=== PATIENT | female | born 1965 | race Two or more races ===

== ENCOUNTER → 2024-10-01 | Outpatient (CLI) | payer MEDICARE, MEDICAID, SELFPAY ==
--- NOTE | 2024-10-01 11:00 | XR_ITS ---
Examination: Retroperitoneal ultrasound, complete Technique: Multiple high resolution grayscale images of the retroperitoneum obtained, including kidneys and bladder. Exam date and time:October 01, 2024 1113 hours INDICATIONS: Right-sided flank pain beginning one month ago FINDINGS: Right kidney 9.8 x 4.2 x 4.5 cm cortex 1.4 cm Left kidney 9.8 x 5.0 x 4.8 cm cortex 1.6 cm Mild bilateral renal parenchymal scar formation No hydronephrosis No bladder mass or bladder calculi Bladder prevoid volume 118 cc postvoid volume 0 cc IMPRESSION: Mild bilateral renal parenchymal scar formation Bilateral renal cortical thinning No hydronephrosis
== END | disposition home or self-care (01) ==
PROVIDERS: PCP Physician Assistant Medical; Referring Provider Internal Medicine; Visit Provider Internal Medicine
DX: N28.89 Other specified disorders of kidney and ureter (principal)
CPT/HCPCS: 76770

== ENCOUNTER 2025-01-01 19:26 | Emergency (ER) | payer MEDICARE, MEDICAID, SELFPAY ==
[2025-01-01 20:11] VITALS: BP 157/61; PULSE 96; RESP 20; TEMP 36.7; O2SAT 97
--- NOTE | 2025-01-01 20:32 | XR_ITS ---
EXAMINATION: Ankle, right 3 views . Technique: Ankle AP, oblique, lateral 3 views Date and time of exam: January 01, 20252032 hrs. Indications: Patient fell today with injury to the ankle, ankle pain Findings: Small density at the lateral margin of the cuboid Medial lateral posterior malleolar regions intact Impression: Recommend follow-up foot films to exclude small fracture off the cuboid
[2025-01-01] MEDS: NAPROXEN 250 MG TABLET 500 MG PO (21:36)
--- NOTE | 2025-01-01 22:12 | XR_ITS ---
Examination: CT right foot, without contrast. 2-D sagittal reconstructions. 2-D coronal reconstructions. 3-D reconstructions. Date and time of exam:January 01, 2025 at 10:50 PM Indications: Patient fell today with injury to the CTDI: vol (mGy):5.51 DLP: (mGycm):100 Technique: Multiple 1.25 mm axial sections of the left leg have been obtained. 2-D sagittal and coronal reconstructions have been obtained. 3-D reconstructions have been obtained. Low dose protocols were performed. One or more of the following dose reduction techniques were used; automated exposure control, adjustment of the mA and/or KV according to patient size, use of iterative reconstruction technique. Findings: Moderate osteopenia Small old bone densities adjacent to the cuboid, sagittal image 39, but clinical correlation advised Metatarsals, metatarsals and digits appear intact No foreign bodies Impression : Old appearing fractures off accessory bone adjacent to the cuboid, but clinical correlation advised
[2025-01-01] MEDS: HYDROcodone/APAP 5/325 TABLET 1 TAB PO (23:24)
[2025-01-02] MEDS: HYDROcodone/APAP 5/325 TABLET 1 TAB PO (01:32)
[2025-01-02 01:39] VITALS: RESP 18
--- NOTE | 2025-01-02 01:42 | PD.EDANKLE ---
Lower Extremity Injury RME/HPI General Chief Complaint: Fall Stated Complaint: FELL, RIGHT KNEE/LEG INJURY Time Seen by Provider: 01/01/25 20:31 Arrival date/time: 01/01/25 19:26 59F with history of HTN presents to ED with R foot and knee pain (foot>knee), as well as some skin abrasions. Patient tripped and fell yesterday. Patient denies hitting her head and has had a tetanus shot in the past 5 years. Limitations: no limitations Related Data Home Medications ?Medication ?Instructions ?Recorded ?Confirmed amlodipine 10 mg tablet 10 mg PO QDAY 08/16/22 08/16/22 dexlansoprazole 60 mg See Rx Instructions .Route .COMPLEX 08/16/22 08/16/22 capsule,biphase delayed release empagliflozin 25 mg tablet 25 mg PO QDAY 08/16/22 08/16/22 (Jardiance) folic acid 1 mg tablet 1 mg PO QDAY 08/16/22 08/16/22 hydrochlorothiazide 25 mg tablet 25 mg PO QDAY 08/16/22 08/16/22 methotrexate sodium 2.5 mg tablet See Rx Instructions .Route .COMPLEX 08/16/22 08/16/22 pantoprazole 40 mg tablet,delayed 40 mg PO QDAY 08/16/22 08/16/22 release simvastatin 10 mg tablet 10 mg PO QDAY 08/16/22 08/16/22 Previous Rx's ?Medication ?Instructions ?Recorded clindamycin HCl 300 mg capsule 300 mg PO QID #40 caps 09/02/23 ketorolac 0.5 % eye drops 1 drp ophthalmic (eye) Q6H PRN 12/28/23 itching #5 mL ofloxacin 0.3 % eye drops See Rx Instructions ophthalmic 12/28/23 (eye) .COMPLEX #10 mL Allergies Allergy/AdvReac Type Severity Reaction Status Date / Time No Known Allergies Allergy Verified 01/01/25 19:30 Review of Systems Review of Systems Systems Reviewed: All systems reviewed, normal except as documented Constitutional Constitutional: Reports system reviewed and no additional complaints, except as documented, Denies fever(s) and Denies headache(s) ENT Ears, Nose, Mouth, and Throat: Denies disequilibrium and Denies headache(s) Cardiovascular Cardiovascular: Reports system reviewed and no additional complaints, except as documented, Denies chest pain and Denies dyspnea Respiratory Respiratory: Reports system reviewed and no additional complaints, except as documented, Denies cough and Denies dyspnea Gastrointestinal Gastrointestinal: Reports system reviewed and no additional complaints, except as documented, Denies abdominal pain, Denies nausea and Denies vomiting Musculoskeletal Musculoskeletal: Reports as per HPI and Reports arthralgias Neurologic Neurologic: Reports system reviewed and no additional complaints, except as documented, Denies confusion, Denies disequilibrium and Denies headache(s) Psychiatric Psychiatric: Denies confusion Past Medical History Past Medical History NEUROLOGIC: Negative Neurological Disorders or Seizures CARDIAC: Positive Hypercholesterolemia and Hypertension; Negative Cardiac Disorders or Congestive Heart Failure RESPIRATORY: Negative Chronic Obstructive Pulmonary Disease (COPD) or Asthma GASTROINTESTINAL: Positive Gastrointestinal Disorders (Abdominal pain, Hepatic cysts) GENITOURINARY: Negative Genitourinary Disorders or Renal Disease REPRODUCTIVE: Positive Previous Pregnancies MUSCULOSKELETAL: Positive Musculoskeletal Disorders and Carpal Tunnel Syndrome (Bilateral) ENDOCRINE: Positive Endocrine Disorders and Diabetes Mellitus Type 2; Negative Diabetes Mellitus Type 1 HEMATOLOGIC: Positive Anemia; Negative Blood Disorders or Sickle Cell Disease OTHER HISTORY: Positive Autoimmune Disease (Scleroderma); Negative Hospitalization, Falls, Blood Transfusions, Anesthesia Reactions or Cancer Social History SMOKING STATUS: Never smoker SUBSTANCE USE: does not use ED Exam General Limitations: Present no limitations General appearance: Present alert and in no apparent distress Head Head exam: Present atraumatic Eye Eye exam: Present normal appearance, PERRL and EOMI ENT ENT exam: Present normal exam, normal oropharynx and mucous membranes moist Neck Neck exam: Present normal inspection, full ROM and trachea midline Chest Chest inspection: Present normal inspection and symmetric chest wall rise Respiratory Respiratory exam: Present normal lung sounds bilaterally Cardiovascular Cardiovascular exam: Present regular rate, normal rhythm and normal heart sounds Abdominal Exam Abdominal exam: Present soft and normal bowel sounds Expanded Lower Extremity Exam Knee exam: Present full ROM and abrasion (R) Foot/toe exam: Present tenderness (R) and swelling Back Exam Back exam: Present normal inspection and full ROM Neurological Exam Neurological exam: Present alert, oriented X3 and CN II-XII intact Psychiatric Psychiatric exam: Present normal affect and normal mood Skin Skin exam: Present warm, dry, intact and normal color Course Quality Measures none Orders Category Date Time Status Crutches .NOW Care 01/01/25 20:32 Completed Splint / Immobilizer STAT Care 01/02/25 00:[address] foot RT wo con Stat Exams 01/01/25 22:12 Completed XR ankle comp RT min 3V Stat Exams 01/01/25 20:32 Completed HYDROcodone*/APAP 5/325 [[place] 5/325] Med 01/01/25 22:47 Discontinued 1 tab PO X1 ONE HYDROcodone*/APAP 5/325 [[place] 5/325] Med 01/02/25 01:22 Discontinued 1 tab PO X1 ONE Naproxen [Naprosyn] Med 01/01/25 20:32 Discontinued 500 mg PO X1 ONE Vital Signs Vital signs: Vital Signs Temperature 98.1 F 01/01/25 20:11 Pulse Rate 96 01/01/25 20:11 Respiratory Rate 20 01/01/25 20:11 Blood Pressure 157/61 H 01/01/25 20:11 Pulse Oximetry (%) 97 01/01/25 20:11 Oxygen Delivery Method Room Air 01/01/25 20:11 O2 at 97% on RA and WNLs Extremity Injury, Lower MDM Narrative MDM Narrative:: 59F with history of HTN presents to ED with R foot and knee pain (foot>knee), as well as some skin abrasions. Patient tripped and fell yesterday. Patient denies hitting her head and has had a tetanus shot in the past 5 years. Physical exam reveals mild skin abrasion that is already scabbed over on R knee. No knee tenderness. ROM intact. L foot tenderness and reduced ROM. Patient is afebrile, calm, and alert. XR and CT shows foot fx, possibly old. Patient confirms she's never injured or broken that foot before, so given symptoms will treat as new fx. Given splint, crutches, and area counselor. Patient data External records reviewed:: [facility] previous records Clinical information provided by:: patient Social determinants that could affect healthcare access:: none Patient has the following chronic illnesses:: HTN How is presenting disease/condition affected by chronic disease/condition?: uneffected by Evaluation data The following diagnostics were reviewed and interpreted by me:: radiology exam(s) Lab and/or radiology exams considered but not ordered:: ordered Interpretation Summary: above Medications / Prescriptions Medications or Prescriptions considered but not ordered:: ordered Medication administrations:: Medication Administration History Discontinued Medications Hydrocodone Bitart/Acetaminophen (Hydrocodone/Apap 5/325 Tablet) 1 tab PO X1 ONE Stop: 01/01/25 22:48 Last Admin: 03/12/25 23:24 Dose: 1 tab Documented By: CORNELL Hydrocodone Bitart/Acetaminophen (Hydrocodone/Apap 5/325 Tablet) 1 tab PO X1 ONE Stop: 01/02/25 01:23 Last Admin: 01/02/25 01:32 Dose: 1 tab Documented By: CORNELL Naproxen (Naproxen 250 Mg Tablet) 500 mg PO X1 ONE Stop: 01/01/25 20:33 Last Admin: 01/01/25 21:36 Dose: 500 mg Documented By: CORNELL above Consultations Consultation(s) initiated? (list below): No Diagnosis Extremity Injury, Lower Differential Diagnosis: ankle sprain and strain, acute internal derangement of knee, fracture of femur, fracture of hip, puncture wound of foot, fracture of toe and ankle fracture Most likely diagnosis given after review of the tests above:: foot fx Admission Indicated Admission indicated?: not indicated Admission Request Was there a request for admission?: No Disposition Plan Disposition Plan: Discharge Discharge Attestation Discharge Attestation: The patient and all family members were given an opportunity to ask questions and understood the discharge instructions. Discharge instructions specifically effects, indications for sooner follow up or return to the emergency department, and the expected course of current diagnosis. Patient condition: Stable Discharge Plan Plan Patient Disposition: HOME (Self Care) Disposition Comment: Stable Prescriptions/Referrals Prescriptions/Med Rec: No Action simvastatin 10 mg tablet 10 mg PO QDAY Patient Comments: TOME COLEEN TABLETA TODOS LOS D EN LA NOCHE FOR 90 DAYS methotrexate sodium 2.5 mg tablet See Rx Instructions .ROUTE .COMPLEX Patient Comments: TOME 6 TABLETAS POR V A ORAL ONCE WEEKLY FOR 30 DAYS Rx Instructions: 2.5 mg orally amlodipine 10 mg tablet 10 mg PO QDAY pantoprazole 40 mg tablet,delayed release (DR/EC) 40 mg PO QDAY folic acid 1 mg tablet 1 mg PO QDAY hydrochlorothiazide 25 mg tablet 25 mg PO QDAY Patient Comments: TOME COLEEN TABLETA TODOS LOS D EN LA MA WILMA FOR 30 DAYS dexlansoprazole 60 mg capsule,biphase delayed releas See Rx Instructions .ROUTE .COMPLEX Patient Comments: TOME 1 C PSULA POR V A ORAL TODOS LOS D 60 DAYS Rx Instructions: 60 mg orally Jardiance 25 mg tablet 25 mg PO QDAY Patient Comments: TOME COLEEN TABLETA POR LA BOCA TODOS LOS LEZAMA FOR 30 DAYS clindamycin HCl 300 mg capsule 300 mg PO QID Qty: 40 0RF ofloxacin 0.3 % drops See Rx Instructions .ROUTE .COMPLEX Qty: 10 0RF Rx Instructions: put 1-2 drps into affected eye(s) every 2-4 h x 2 days, then 1-2 drps 4 times/day days 3-7 ketorolac 0.5 % drops 1 drp ophthalmic (eye) Q6H PRN (Reason: itching) Qty: 5 0RF Referrals: No Primary/Family,Physician [Primary Care Provider] - In 1 week Problem List Clinical Impression: Foot fracture Patient/Caregiver Discharge Instructions Education Materials: ED Fracture, Foot Additional Instructions: Please follow-up with PCP within 24-48 hours and return immediately if symptoms worsen. See PCP for referral to ortho or podiatry. Print Language: Macanese Stand Alone Forms: Work/School Release, Patient Portal Info Letter CORA/KELLEY Supervising Physician CORA/KELLEY Supervising Physician: Dr. Zamudio
== END 2025-01-02 01:40 | disposition home or self-care (01) ==
PROVIDERS: Emergency Provider Emergency Medicine
DX: S92.901A Unspecified fracture of right foot, initial encounter for closed fracture (principal); S80.211A Abrasion, right knee, initial encounter; S99.911A Unspecified injury of right ankle, initial encounter; W01.0XXA Fall on same level from slipping, tripping and stumbling without subsequent striking against object, initial encounter
CPT/HCPCS: 29515; 73610; 73700; 99284; A9270

== ENCOUNTER 2025-08-28 09:30 | Emergency (ER) | payer MEDICARE, MEDICAID, SELFPAY ==
[2025-08-28 09:31] VITALS: BMI 27.3
[2025-08-28 09:44] VITALS: BP 118/61; PULSE 103; RESP 19; TEMP 38.1; O2SAT 99
--- NOTE | 2025-08-28 09:49 | XR_ITS ---
Examination: CT abdomen and pelvis without contrast. Coronal 3-D reconstructions. Sagittal 2-D reconstructions. Date and time of exam: 08/28/2025, 11:39 a.m. INDICATION: Right-sided flank pain COMPARISON: CT abdomen/pelvis without contrast 06/13/2022, CT abdomen pelvis with contrast 11/04/2021. CTDI: vol (mGy): 7.57 DLP: (mGycm): 434 Technique: Axial images of the abdomen have been obtained, 3 mm slice thickness Intravenous contrast material has not been administered. Low dose protocols were performed. One or more of the following dose reduction techniques were used; automated exposure control, adjustment of the mA and/or KV according to patient size, use of iterative reconstruction technique. Findings: Lack of intravenous contrast limits evaluation of solid organs, vasculature, and lymph nodes. Lower thorax: Multiple linear densities compatible with a combination of subsegmental atelectasis and fibrosis is present in the lungs. Stable subpleural densities in the anterior right midlung field. No segmental or lobar consolidation. No pleural effusion. Normal heart size. Minimal anterior pericardial fluid identified. Fluid in the visualized esophageal lumen is likely reflective of underlying gastroesophageal reflux. LAD atherosclerosis noted. Liver: Normal variant Robert lobe morphology. Previously visualized hepatic steatosis has resolved. Multiple small hypodensities consistent with liver cysts are present, some too small to properly characterize. A sub-2 cm non fluid-attenuating subcapsular density in the lateral aspect of the right hepatic lobe, grossly stable compared to the CT of 11/04/2021, could represent either a complex cyst or hemangioma. Biliary system: No calcified gallstones or findings concerning for acute cholecystitis or biliary ductal obstruction. Spleen: Within normal limits of size. No discrete mass. Pancreas: No contour deforming mass or overt main pancreatic duct dilatation. No evidence for acute inflammation. Adrenal glands: Stable appearance of the adrenal glands without discrete nodules. Kidneys: No contour-deforming solid mass. No calculi or hydronephrosis. Bladder: No calculi or discrete mass. Pelvic organs: No masses or acute findings. Bowel/Peritoneal cavity: Limited assessment without IV and oral contrast as well as segments of underdistention. No contour deforming mass. No obstructive or acute inflammatory changes. Mild to moderate fecal burden is present throughout the redundant colon, most pronounced within the ascending colon at time of imaging. Mild pelvic floor prolapse with small rectocele noted. No ascites or free air. No concerning peritoneal thickening. Lymph nodes/retroperitoneum: No pathologically enlarged lymph nodes or other masses. No hematoma or other abnormal collections. Vessels: Mild scattered aortic calcific plaque. Normal caliber abdominal aorta. Partially peripherally calcified splenic artery images and measures approximately 1.1 cm, stable compared to prior CT. 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 Abdominal/Pelvic wall: Minimal fat-containing umbilical hernia noted. Musculoskeletal: Multifocal degenerative changes with otherwise no evidence for recent fracture or aggressive lesion. IMPRESSION: Negative noncontrast CT for acute abnormality in the abdomen and pelvis. No evidence for urinary tract calculi or acute obstructive uropathy. Interval resolution of previously visualized hepatic steatosis. Multiple small benign-appearing hypodense liver lesions reidentified, the majority representing cysts. Gastroesophageal reflux.
--- NOTE | 2025-08-28 09:51 | PD.EDRME ---
Rapid Medical Screening Exam [facility] Arrival date/time: 08/28/25 09:30 60-year-old female presents to the emergency department today for complaints of bilateral lower back pain and flank pain Chief Complaint: Back Pain/Injury Vital signs: Vital Signs Temperature 100.5 F H 08/28/25 09:44 Pulse Rate 103 H 08/28/25 09:44 Respiratory Rate 19 08/28/25 09:44 Blood Pressure 118/61 08/28/25 09:44 Pulse Oximetry (%) 99 08/28/25 09:44 Oxygen Delivery Method Room Air 08/28/25 09:44 Exam: On exam patient is tenderness lower back worse with movement Clinical Impression: Lab work and imaging ordered
[2025-08-28 09:58] VITALS: TEMP 38.1
[2025-08-28] MEDS: ACETAMINOPHEN 500 MG TABLET 1000 MG PO (09:58)
[2025-08-28 10:11] LABS: Lactate (Lactic Acid) 1.0 mMol/L (0.4-2.0)
[2025-08-28 10:14] LABS: Basophils # (Auto) 0.0 Thou/mm3 (0.0-0.2); Basophils % (Auto) 0 % (0-2.5); Eosinophils # (Auto) 0.0 Thou/mm3 (0.0-0.5); Eosinophils % (Auto) 1 % (0-10); Hematocrit 40.3 % (36.0-46.0); Hemoglobin 12.9 g/dL (12.0-16.0); Immature Granulocytes Auto 0.02 Thou/mm3 (0.00-0.00); Lymphocytes # (Auto) 1.4 Thou/mm3 (1.0-4.8); Lymphocytes % (Auto) 26 % (10-50); Mean Corpuscular HGB Conc 32.0 g/dl (31.0-37.0); Mean Corpuscular Hemoglobin 26.7 pg (25.0-35.0); Mean Corpuscular Volume 83 fL (80-100); Monocytes # (Auto) 0.7 Thou/mm3 (0.0-0.8); Monocytes % (Auto) 13 % (0-12); Neutrophils # (Auto) 3.1 Thou/mm3 (1.8-7.7); Neutrophils % (Auto) 59 % (37-80); Nucleated Red Blood Cell # 0.00 Thou/mm3 (0.00-0.00); Nucleated Red Blood Cell % 0 /100 WBC (0); Platelet Count 253 Thou/mm3 (140-440); RDW Standard Deviation 41.0 fL (36.4-46.3); Red Blood Count 4.83 Miln/mm3 (4.00-5.20); White Blood Count 5.2 Thou/mm3 (3.6-11.0)
[2025-08-28 10:27] LABS: Collection Type, Urine Clean Catch
[2025-08-28 10:35] LABS: Bilirubin,Urine Negative (Negative); Blood,Urine Negative (Negative); Clarity,Urine Clear (Clear/Hazy); Color,Urine Yellow (Lt Yel-Yel); Glucose, Urine 3+ (Negative); Ketones,Urine Negative (Negative); Leukocyte Esterase,Urine Negative (Negative); Nitrite,Urine Negative (Negative); PH,Urine 6.0 (5.0-7.0); Protein,Urine Trace (Neg - Trace); RBC,Urine 6 /hpf (0-3); Specific Gravity,Urine 1.022 (1.001-1.035); Squamous Epithelial Cell,Urine 1 /hpf (0-5); Urobilinogen,Urine Negative mg/dL (0.0-1.0); WBC,Urine 4 /hpf (0-5)
[2025-08-28 10:42] LABS: Alanine Aminotransferase 17 U/L (10-49); Albumin, Serum 4.9 gm/dL (3.5-5.0); Albumin/Globulin Ratio 1.7 (1.2-2.2); Alkaline Phosphatase 92 U/L (46-116); Anion Gap 8 (7-16); Aspartate Amino Transferase 20 U/L (0-34); BUN/Creatinine Ratio 10 Ratio (12-20); Bilirubin,Total 0.4 mg/dL (0.3-1.2); Blood Urea Nitrogen 9 mg/dL (9-23); Calcium 10.3 mg/dL (8.3-10.6); Calcium (Corrected) 10.3 mg/dL (8.5-10.1); Carbon Dioxide 25.7 mMol/L (20.0-31.0); Chloride 104 mMol/L (98-107); Creatinine (Component) 0.9 mg/dL (0.6-1.3); Estimated Creatinine Clearance 56.0 mL/min (>60); Globulin 2.9 gm/dL (2.3-3.5); Glucose 167 mg/dL (74-106); Lipase 31 U/L (12-53); Osmolality,Calculated 278 (275-295); Potassium 5.0 mMol/L (3.4-5.1); Procalcitonin 0.06 ng/ml (0.0-0.49); Sodium 138 mMol/L (136-145); Total Protein 7.8 gm/dL (5.7-8.2); eGFR > 60 See Note
[2025-08-28 12:00] VITALS: TEMP 36.4
--- NOTE | 2025-08-28 12:51 | EDNOTE_ITS ---
ED Back Injury Pain RME/HPI General Chief Complaint: Back Pain/Injury Stated Complaint: BACK PAIN FOR 1 WEEK Time Seen by Provider: 08/28/25 12:42 Arrival date/time: 08/28/25 09:30 60-year-old female patient came in for evaluation regarding fever. Patient having fever, since yesterday, comes and goes, severity mild. Been complaining of low back pain also for 1 week. Described as dull ache, severity mild. Denies any abdominal pain denies any cough denies any other complaints. No urinary incontinence. No bowel incontinence. Denies any fall or trauma to the back recently. Patient is ambulatory. RME / HPI RME / HPI Narrative: 08/28/25 09:30 60-year-old female presents to the emergency department today for complaints of bilateral lower back pain and flank pain Exam: On exam patient is tenderness lower back worse with movement Impression: Lab work and imaging ordered Related Data Home Medications ?Medication ?Instructions ?Recorded ?Confirmed amlodipine 10 mg tablet 10 mg PO QDAY 08/16/2208/16 dexlansoprazole 60 mg See Rx Instructions .Route . COMPLEX 08/16/22 08/16/22 capsule,biphase delayed release empagliflozin 25 mg tablet 25 mg PO QDAY 08/16/2207/24 (Jardiance) folic acid 1 mg tablet 1 mg PO QDAY 08/16/22 hydrochlorothiazide 25 mg tablet 25 mg PO QDAY 2 08/16/22 methotrexate sodium 2.5 mg tablet See Rx Instructions .Route .COMPLEX 08/16/22 08/16/22 pantoprazole 40 mg tablet,delayed 40 mg PO QDAY 08/16/22 release simvastatin 10 mg tablet 10 mg PO QDAY 08/16/2208/16 Previous Rx's ?Medication ?Instructions ?Recorded clindamycin HCl 300 mg capsule 300 mg PO QID #40 caps 09/02/23 ketorolac 0.5 % eye drops 1 drp ophthalmic (eye) Q6H P RN 12/28/23 itching #5 mL ofloxacin 0.3 % eye drops See Rx Instructions ophthalm ic 12/28/23 (eye) .COMPLEX #10 mL cyclobenzaprine 10 mg tablet 10 mg PO TID PRN muscle s pasm #20 08/28/25 tabs ibuprofen 800 mg tablet 800 mg PO Q8H PRN pain #30 t abs 08/28/25 Allergies Allergy/AdvReac Type Severity Reaction Status Date / Time No Known Allergies Allergy Verified 08/28/25 09:32 Review of Systems Review of Systems Narrative Review of Systems: Review of system reviewed and within normal limits except mentioned in HPI ED Exam Narrative Physical exam: VITAL SIGNS: Reviewed. GENERAL APPEARANCE: Alert and interactive, follows commands, no acute distress, HEAD AND FACE: Non-traumatic. ENT: PERRL, pink conjunctivitis, eyelid no trauma, Mucous membrane moist. NECK: Supple, nontender, no nuchal rigidity. CHEST: No tenderness, no crepitus, no paradoxical movement, no retractions. LUNGS: Clear, well ventilated, symmetric, no rales, no wheezing, no ronchi, no stridor, good breath sounds bilaterally. HEART: Regular rate, regular rhythm, no murmur, no gallops. ABDOMEN: Soft, positive bowel sounds, nondistended, no guarding, nontender, no rebound, no masses, RECTAL: Deferred. GENITAL: Deferred. NEUROLOGICAL: Gross motor function intact sensory function intact, Appropriate for age. MUSCULOSKELETAL: low back tenderness, full range of motion. EXTREMITIES: Nontender, full range of motion. SKIN: Color pink, dry, no rash, no lacerations, no abrasions, no contusions. LYMPHATICS: Deferred. Course Quality Measures none Orders Category Date Time Status CT abdomen pelvis wo con Stat Exams 08/28/25 09:49 Completed Blood Culture (Lab) Stat Lab 08/28/25 10:00 Received CBC Stat Lab 08/28/25 10:04 Completed Comprehensive Metabolic Panel Stat Lab 08/28/25 10:04 Completed Lactate (Lactic Acid) Stat Lab 08/28/25 10:04 Completed Lipase Stat Lab 08/28/25 10:04 Completed Procalcitonin Stat Lab 08/28/25 10:04 Completed Urinalysis Stat Lab 08/28/25 10:15 Completed Urine Culture Stat Lab 08/28/25 10:15 Received Acetaminophen Tab [Tylenol ES Tab] Med 08/28/25 09:51 Discontinued 1,000 mg PO X1 ONE Vital Signs Vital signs: Vital Signs Temperature 100.5 F H 08/28/25 09:44 Pulse Rate 103 H 08/28/25 09:44 Respiratory Rate 19 08/28/25 09:44 Blood Pressure 118/61 08/28/25 09:44 Pulse Oximetry (%) 99 08/28/25 09:44 Oxygen Delivery Method Room Air 08/28/25 09:44 Back Pain / Injury [facility] Narrative [facility] Narrative:: 60-year-old female patient came in for evaluation regarding fever. Patient having fever, since yesterday, comes and goes, severity mild. Been complaining of low back pain also for 1 week. Described as dull ache, severity mild. Denies any abdominal pain denies any cough denies any other complaints. No urinary incontinence. No bowel incontinence. Denies any fall or trauma to the back recently. Patient is ambulatory. Patient's workup today all came back unremarkable urinalysis no UTI. CT scan of the abdomen and pelvis also came back with no acute pathology noted. Results discussed with the patient. Further imaging is not needed at this time patient is not showing any cauda equina syndrome. Patient appears nontoxic and hemodynamically stable .Decision to discharge the patient. The patient/family was given an opportunity to ask questions and understood their discharge instructions. Discharge instructions specifically included follow up provider and time frame, current and/or new medications and possible side effects, indications for sooner follow up or return to the emergency department, and the expected course of current diagnosis. Patient reports feeling better as well and giving evidence of significant clinical improvement, I believe patient is now a candidate for discharge. Patient data External records reviewed:: None Clinical information provided by:: patient Social determinants that could affect healthcare access:: none Patient has the following chronic illnesses:: Diabetes hypertension How is presenting disease/condition affected by chronic disease/condition?: exacerbated by Evaluation data The following diagnostics were reviewed and interpreted by me:: lab results and radiology exam(s) Lab and/or radiology exams considered but not ordered:: None Interpretation Summary: See [facility] Medications / Prescriptions Medications or Prescriptions considered but not ordered:: None Medication administrations:: Medication Administration History Discontinued Medications Acetaminophen (Acetaminophen 500 Mg Tablet) 1,000 mg PO X1 ONE Stop: 08/28/25 09:52 Last Admin: 08/28/25 09:58 Dose: 1,000 mg Documented By: Tylenol Consultations Consultation(s) initiated? (list below): No Diagnosis Differential diagnosis back pain/injury: sciatica, renal colic and other ( Acute low back pain) Most likely diagnosis given after review of the tests above:: Acute low back pain, fever Admission Indicated Admission indicated?: not indicated Explain why admission is indicated or not indicated:: None Admission Request Was there a request for admission?: No Disposition Plan Disposition Plan: Discharge Discharge Attestation Discharge Attestation: The patient was given an opportunity to ask questions and understood the discharge instructions. Discharge instructions specifically effects, indications for sooner follow up or return to the emergency department, and the expected course of current diagnosis. Patient condition: Stable Discharge Plan Plan Patient Disposition: HOME (Self Care) Discharge Disposition comment: stable Prescriptions/Referrals Prescriptions/Med Rec: New ibuprofen 800 mg tablet 800 mg PO Q8H PRN (Reason: pain) Qty: 30 0RF cyclobenzaprine 10 mg tablet 10 mg PO TID PRN (Reason: muscle spasm) Qty: 20 0RF No Action simvastatin 10 mg tablet 10 mg PO QDAY Patient Comments: TOME COLEEN TABLETA TODOS LOS D EN LA NOCHE FOR 90 DAYS methotrexate sodium 2.5 mg tablet See Rx Instructions .ROUTE .COMPLEX Patient Comments: TOME 6 TABLETAS POR V A ORAL ONCE WEEKLY FOR 30 DAYS Rx Instructions: 2.5 mg orally amlodipine 10 mg tablet 10 mg PO QDAY pantoprazole 40 mg tablet,delayed release (DR/EC) 40 mg PO QDAY folic acid 1 mg tablet 1 mg PO QDAY hydrochlorothiazide 25 mg tablet 25 mg PO QDAY Patient Comments: TOME COLEEN TABLETA TODOS LOS D EN LA MA WILMA FOR 30 DAYS dexlansoprazole 60 mg capsule,biphase delayed releas See Rx Instructions .ROUTE .COMPLEX Patient Comments: DONAVAN 1 C PSULA POR V A ORAL TODOS LOS D 60 DAYS Rx Instructions: 60 mg orally Jardiance 25 mg tablet 25 mg PO QDAY Patient Comments: TOME COLEEN TABLETA POR LA BOCA TODOS LOS LEZAMA FOR 30 DAYS clindamycin HCl 300 mg capsule 300 mg PO QID Qty: 40 0RF ofloxacin 0.3 % drops See Rx Instructions .ROUTE .COMPLEX Qty: 10 0RF Rx Instructions: put 1-2 drps into affected eye(s) every 2-4 h x 2 days, then 1-2 drps 4 times/day days 3-7 ketorolac 0.5 % drops 1 drp ophthalmic (eye) Q6H PRN (Reason: itching) Qty: 5 0RF Referrals: Gareth Herrera MD [Primary Care Provider, Family Practice] - In 1 week Problem List Clinical Impression: Fever, Low back pain Patient/Caregiver Discharge Instructions Discharge Activity: activity as tolerated Education Materials: ED Back Care Tips Additional Instructions: Thank you for the opportunity for serving you today. You are stable for discharged . You are advised to: Follow-up with your PCP in 1 to 2 days Return to ED for worsening of symptoms Increase oral fluids Take medication as prescribed Print Language: Mongolian Stand Alone Forms: Sully Award Info., Patient Portal Info Letter PA/ROUGHER OPERATOR Supervising Physician PA/ROUGHER OPERATOR Supervising Physician: MD Guillermo
[2025-08-28 12:52] VITALS: BP 134/80; PULSE 71; RESP 19; TEMP 36.4; O2SAT 97
== END 2025-08-28 13:50 | disposition home or self-care (01) ==
PROVIDERS: Nurse Practitioner Primary Care; Emergency Provider Family Medicine; PCP Family Medicine
DX: M54.50 Low back pain, unspecified (principal); R50.9 Fever, unspecified
CPT/HCPCS: 36415; 74176; 80053; 81001; 83605; 83690; 84145; 85025; 87040; 87086; 99283; A9270

== ENCOUNTER 2025-10-22 10:45 | Emergency (ER) | payer MEDICARE, MEDICAID, SELFPAY ==
[2025-10-22 10:46] VITALS: BMI 26.9
[2025-10-22 10:59] VITALS: BP 125/81; PULSE 81; RESP 19; TEMP 36.7; O2SAT 99; BMI 25.4
--- NOTE | 2025-10-22 11:09 | XR_ITS ---
Study: Right lower extremity venous Doppler. INDICATION: Right foot pain and swelling for 1 week. Right foot surgery 02 May 2025 diabetic and hypertensive. TECHNIQUE: Grayscale ultrasound with color flow Doppler. 25 images at 1201 hours 22 October 2025. FINDINGS: There is no thrombus in the posterior tibial, peroneal, popliteal, superficial femoral, great saphenous or common femoral veins of the right lower extremity. All are compressible and display augmentation. IMPRESSION: No right lower extremity deep vein thrombosis.
--- NOTE | 2025-10-22 11:09 | XR_ITS ---
Examination: Foot, right, 3 views Technique: AP, oblique, lateral views foot, 3 views Date and time of exam: October 22, 2025, 1115 hours INDICATIONS: Removal bone spur surgery April 2025, redness swelling and pain involving the foot beginning 5 days ago, diabetic FINDINGS: Severe osteopenia No fracture No sheila cortical bone destruction 8 mm posterior bony calcaneal spur Soft tissue swelling dorsum of the foot IMPRESSION: No sheila cortical bone destruction
--- NOTE | 2025-10-22 11:33 | PD.EDANKLE ---
Lower Extremity Injury RME/HPI General Chief Complaint: Ankle/Foot Injury Stated Complaint: RIGHT FOOT PAIN HX OF FOOT SURGERY Time Seen by Provider: 10/22/25 10:48 Arrival date/time: 10/22/25 10:45 60-year-old female with prior history of foot surgery to the right foot presents with complaints of pain at the surgical site patient reports symptoms ongoing for last couple of days patient reports no fever nausea or vomiting no redness or warmth Limitations: no limitations Related Data Home Medications ?Medication ?Instructions ?Recorded ?Confirmed amlodipine 10 mg tablet 10 mg PO QDAY 08/16/22 08/16/22 dexlansoprazole 60 mg See Rx Instructions .Route .COMPLEX 08/16/22 08/16/22 capsule,biphase delayed release empagliflozin 25 mg tablet 25 mg PO QDAY 08/16/22 08/16/22 (Jardiance) folic acid 1 mg tablet 1 mg PO QDAY 08/16/22 08/16/22 hydrochlorothiazide 25 mg tablet 25 mg PO QDAY 08/16/22 08/16/22 methotrexate sodium 2.5 mg tablet See Rx Instructions .Route .COMPLEX 08/16/22 08/16/22 pantoprazole 40 mg tablet,delayed 40 mg PO QDAY 08/16/22 08/16/22 release simvastatin 10 mg tablet 10 mg PO QDAY 08/16/22 08/16/22 Previous Rx's ?Medication ?Instructions ?Recorded clindamycin HCl 300 mg capsule 300 mg PO QID #40 caps 09/02/23 ketorolac 0.5 % eye drops 1 drp ophthalmic (eye) Q6H PRN 12/28/23 itching #5 mL ofloxacin 0.3 % eye drops See Rx Instructions ophthalmic 12/28/23 (eye) .COMPLEX #10 mL cyclobenzaprine 10 mg tablet 10 mg PO TID PRN muscle spasm #20 08/28/25 tabs ibuprofen 800 mg tablet 800 mg PO Q8H PRN pain #30 tabs 08/28/25 ibuprofen 800 mg tablet 800 mg PO TID PRN pain #30 tabs 10/22/25 tramadol 50 mg tablet 50 mg PO BID PRN pain #6 tabs 10/22/25 Allergies Allergy/AdvReac Type Severity Reaction Status Date / Time No Known Allergies Allergy Verified 10/22/25 10:48 Review of Systems Review of Systems Systems Reviewed: All systems reviewed, normal except as documented Constitutional Constitutional: Reports system reviewed and no additional complaints, except as documented, Denies fever(s) and Denies headache(s) Eyes Eyes: Reports system reviewed and no additional complaints, except as documented and Denies blurry vision ENT Ears, Nose, Mouth, and Throat: Reports system reviewed and no additional complaints, except as documented, Denies headache(s), Denies nasal congestion and Denies nasal discharge Cardiovascular Cardiovascular: Reports system reviewed and no additional complaints, except as documented, Denies chest pain and Denies dyspnea Respiratory Respiratory: Reports system reviewed and no additional complaints, except as documented, Denies chest congestion, Denies cough and Denies dyspnea Gastrointestinal Gastrointestinal: Reports system reviewed and no additional complaints, except as documented and Denies abdominal pain Musculoskeletal Musculoskeletal: Reports system reviewed and no additional complaints, except as documented, Reports abnormal gait, Reports arthralgias, Denies deformity and Reports joint swelling Integumentary/Breasts Skin/Breast: Reports system reviewed and no additional complaints, except as documented and Denies rash Neurologic Neurologic: Reports system reviewed and no additional complaints, except as documented, Reports as per HPI, Reports abnormal gait and Denies headache(s) Past Medical History Past Medical History NEUROLOGIC: Negative Neurological Disorders or Seizures CARDIAC: Positive Hypercholesterolemia and Hypertension; Negative Cardiac Disorders or Congestive Heart Failure RESPIRATORY: Negative Chronic Obstructive Pulmonary Disease (COPD) or Asthma GASTROINTESTINAL: Positive Gastrointestinal Disorders (Abdominal pain, Hepatic cysts) GENITOURINARY: Negative Genitourinary Disorders or Renal Disease REPRODUCTIVE: Positive Previous Pregnancies MUSCULOSKELETAL: Positive Musculoskeletal Disorders and Carpal Tunnel Syndrome (Bilateral) ENDOCRINE: Positive Endocrine Disorders and Diabetes Mellitus Type 2; Negative Diabetes Mellitus Type 1 HEMATOLOGIC: Positive Anemia; Negative Blood Disorders or Sickle Cell Disease OTHER HISTORY: Positive Autoimmune Disease (Scleroderma); Negative Hospitalization, Falls, Blood Transfusions, Anesthesia Reactions or Cancer Social History SMOKING STATUS: Never smoker SUBSTANCE USE: does not use ED Exam General Limitations: Present no limitations General appearance: Present alert and in no apparent distress Head Head exam: Present atraumatic Eye Eye exam: Present normal appearance, PERRL and EOMI ENT ENT exam: Present normal exam, normal oropharynx and mucous membranes moist Neck Neck exam: Present normal inspection, full ROM and trachea midline Chest Chest inspection: Present normal inspection and symmetric chest wall rise Respiratory Respiratory exam: Present normal lung sounds bilaterally Cardiovascular Cardiovascular exam: Present regular rate, normal rhythm and normal heart sounds Abdominal Exam Abdominal exam: Present soft and normal bowel sounds Extremities Exam Extremities exam: Present full ROM, tenderness (Right foot pain) and normal capillary refill Back Exam Back exam: Present normal inspection and full ROM Neurological Exam Neurological exam: Present alert, oriented X3 and CN II-XII intact Psychiatric Psychiatric exam: Present normal affect and normal mood Skin Skin exam: Present warm, dry, intact and normal color Course Quality Measures none Orders Category Date Time Status Bedside Influenza A&B Antigen Test NOW Care 10/22/25 11:09 Completed US venous doppler LE RT Stat Exams 10/22/25 11:09 Completed XR foot comp RT min 3V Stat Exams 10/22/25 11:09 Completed Vital Signs Vital signs: Vital Signs Temperature 98.0 F 10/22/25 10:59 Pulse Rate 81 10/22/25 10:59 Respiratory Rate 19 10/22/25 10:59 Blood Pressure 125/81 10/22/25 10:59 Pulse Oximetry (%) 99 10/22/25 10:59 Oxygen Delivery Method Room Air 10/22/25 10:59 O2 saturation 99% room air within normal limits Extremity Injury, Lower MDM Narrative MDM Narrative:: 60-year-old female with prior history of foot surgery to the right foot presents with complaints of pain at the surgical site patient reports symptoms ongoing for last couple of days patient reports no fever nausea or vomiting no redness or warmth Clinically patient well-appearing does not appear look toxic Patient has no redness or warmth to the extremity patient has mild swelling X-ray of the foot obtained no acute fracture or dislocation noted Ultrasound obtained no acute DVT noted Patient discharged home in no distress to follow-up with primary care doctor in the next 24 to 48 hours and for any worsening symptoms to return to the ER immediately Patient data External records reviewed:: [facility] previous records Clinical information provided by:: patient Social determinants that could affect healthcare access:: none Patient has the following chronic illnesses:: None How is presenting disease/condition affected by chronic disease/condition?: caused by Evaluation data The following diagnostics were reviewed and interpreted by me:: radiology exam(s) Lab and/or radiology exams considered but not ordered:: Radiology Interpretation Summary: By me Medications / Prescriptions Medications or Prescriptions considered but not ordered:: Given Medication administrations:: Given Consultations Consultation(s) initiated? (list below): No Diagnosis Most likely diagnosis given after review of the tests above:: Acute on chronic foot pain Admission Indicated Admission indicated?: not indicated Admission Request Was there a request for admission?: No Disposition Plan Disposition Plan: Discharge Discharge Attestation Discharge Attestation: The patient and all family members were given an opportunity to ask questions and understood the discharge instructions. Discharge instructions specifically effects, indications for sooner follow up or return to the emergency department, and the expected course of current diagnosis. Patient condition: Stable Discharge Plan Plan Patient Disposition: HOME (Self Care) Discharge Disposition comment: stable Prescriptions/Referrals Prescriptions/Med Rec: New ibuprofen 800 mg tablet 800 mg PO TID PRN (Reason: pain) Qty: 30 0RF tramadol 50 mg tablet 50 mg PO BID PRN (Reason: pain) Qty: 6 0RF No Action simvastatin 10 mg tablet 10 mg PO QDAY Patient Comments: TOME COLEEN TABLETA TODOS LOS D EN LA NOCHE FOR 90 DAYS methotrexate sodium 2.5 mg tablet See Rx Instructions .ROUTE .COMPLEX Patient Comments: TOME 6 TABLETAS POR V A ORAL ONCE WEEKLY FOR 30 DAYS Rx Instructions: 2.5 mg orally amlodipine 10 mg tablet 10 mg PO QDAY pantoprazole 40 mg tablet,delayed release (DR/EC) 40 mg PO QDAY folic acid 1 mg tablet 1 mg PO QDAY hydrochlorothiazide 25 mg tablet 25 mg PO QDAY Patient Comments: DAVIDE COLEEN TABLETA TODOS LOS D EN LA MA WILMA FOR 30 DAYS dexlansoprazole 60 mg capsule,biphase delayed releas See Rx Instructions .ROUTE .COMPLEX Patient Comments: DONAVAN 1 C PSULA POR V A ORAL TODOS LOS D 60 DAYS Rx Instructions: 60 mg orally Jardiance 25 mg tablet 25 mg PO QDAY Patient Comments: TOME COLEEN TABLETA POR LA BOCA TODOS LOS LEZAMA FOR 30 DAYS ibuprofen 800 mg tablet 800 mg PO Q8H PRN (Reason: pain) Qty: 30 0RF cyclobenzaprine 10 mg tablet 10 mg PO TID PRN (Reason: muscle spasm) Qty: 20 0RF clindamycin HCl 300 mg capsule 300 mg PO QID Qty: 40 0RF ofloxacin 0.3 % drops See Rx Instructions .ROUTE .COMPLEX Qty: 10 0RF Rx Instructions: put 1-2 drps into affected eye(s) every 2-4 h x 2 days, then 1-2 drps 4 times/day days 3-7 ketorolac 0.5 % drops 1 drp ophthalmic (eye) Q6H PRN (Reason: itching) Qty: 5 0RF Referrals: Gareth Herrera MD [Primary Care Provider, Family Practice] - In 1 week Problem List Clinical Impression: Foot pain, right Patient/Caregiver Discharge Instructions Education Materials: ED RICE Additional Instructions: Please follow up with your primary care doctor in the next 24-48hrs for any worsening symptoms return here immediately Print Language: Kuwaiti Stand Alone Forms: Sully Award Info., Patient Portal Info Letter PA/CONDUCTOR/ENGINEER Supervising Physician PA/CONDUCTOR/ENGINEER Supervising Physician: Dr. porras
== END 2025-10-22 13:23 | disposition home or self-care (01) ==
PROVIDERS: Emergency Provider Nurse Practitioner Primary Care; PCP Family Medicine
DX: M79.671 Pain in right foot (principal); Z98.890 Other specified postprocedural states
CPT/HCPCS: 73630; 87502; 93971; 99282